=== PATIENT | female | born 1945 | race Caucasian/White ===

== ENCOUNTER → 2017-10-01 | Outpatient (CLI) | payer MEDICARE ==
[~2017-10-01] MED LIST: ALPR.25 PO; BENZ100 PO; BIOT5000 PO; CALC1TAB87 PO; CLON.5 PO; CLON1 PO; IBUP400T20 PO; KEPP1000 PO; LEXA20TA PO; OMEGCAP29 PO; OMEP20TA39 PO; TAB-TAB PO; ZETI10TA5 PO; ZOLP5TAB3 PO; [UNRECOGNIZED DRUG - CODE] PO
[2017-10-01 12:02] LABS: AUTOMATED NEUTROPHIL # 3.9 TH/MM3 (1.8-7.7); BASOPHIL % 0.6 % (0.0-2.0); EOSINOPHIL # 0.2 TH/MM3 (0-0.4); EOSINOPHIL % 2.3 % (0.0-4.0); HEMATOCRIT 42.4 % (35.0-46.0); HEMOGLOBIN 14.7 GM/DL (11.6-15.3); LYMPH % 34.9 % (9.0-44.0); LYMPHOCYTE # 2.4 TH/MM3 (1.0-4.8); MEAN CELL VOLUME 90.9 FL (80.0-100.0); MEAN CORPUSCULAR HEMOGLOBIN 31.6 PG (27.0-34.0); MEAN CORPUSCULAR HGB CONC 34.8 % (32.0-36.0); MEAN PLATELET VOLUME 8.4 FL (7.0-11.0); MONO % 5.9 % (0.0-8.0); MONOCYTE # 0.4 TH/MM3 (0-0.9); NEUT % 56.3 % (16.0-70.0); PLATELET COUNT 131 TH/MM3 (150-450); RED BLOOD COUNT 4.66 MIL/MM3 (4.00-5.30); RED CELL DISTRIBUTION WIDTH 13.1 % (11.6-17.2); WHITE BLOOD COUNT 6.9 TH/MM3 (4.0-11.0)
[2017-10-01 13:00] LABS: BILIRUBIN, URINE NEG (NEG); BLOOD, URINE NEG (NEG); GLUCOSE,URINE NEG (NEG); KETONE, URINE NEG (NEG); MUCUS URINE FEW /lpf (OCC); NITRITE,URINE NEG (NEG); PH, URINE 5.5 (5.0-8.5); URINE COLOR YELLOW (YELLW/STRAW); URINE LEUKOCYTE ESTERASE NEG (NEG)
== END ==
LOC: CLAB 11:33
PROVIDERS: ATTEND Orthopaedic Surgery Orthopaedic Surgery of the Spine
DX: M99.51 Intervertebral disc stenosis of neural canal of cervical region (principal); M50.320 Other cervical disc degeneration, mid-cervical region, unspecified level
CPT/HCPCS: 36415; 81001; 85025

== ENCOUNTER 2017-10-08 05:50 | Inpatient (IN) | payer MEDICARE ==
[~2017-10-08] VITALS: Ht 165.1 cm; Wt 65.7 kg
[~2017-10-08 05:50] MED LIST changes: -ALPR.25 PO; -BENZ100 PO; -BIOT5000 PO; -CLON1 PO; +EZET10 PO; -IBUP400T20 PO; -KEPP1000 PO; +KEPP500T5 PO; -OMEP20TA39 PO; -TAB-TAB PO; -ZETI10TA5 PO; -ZOLP5TAB3 PO; -[UNRECOGNIZED DRUG - CODE] PO
[2017-10-08] MEDS ORDERED: VANCOMYCIN 1000 MG/NS 250 ML (for <70 kg) IV SCH ×2 (06:15)
[2017-10-08] MEDS ORDERED: CHLORHEXIDINE GLUCONATE 4% SOLN 120 ML BTL TOPICAL SCH (06:15)
[2017-10-08] MEDS ORDERED: ceFAZolin 2 GM PREMIX 50 ML IV SCH (06:15)
[2017-10-08] MEDS ORDERED: BUPIVACAINE/EPINEPHRINE 0.25% 50 ML VIAL ONE (06:19)
[2017-10-08] MEDS ORDERED: ACETAMINOPHEN 1000 MG/100 ML 100 ML IV ONE (06:19)
[2017-10-08] MEDS ORDERED: GENTAMICIN SULFATE 80 MG/2 ML VIAL ONE (06:20)
[2017-10-08] MEDS ORDERED: LACTATED RINGER'S 1000 ML IV PRN (06:30)
[2017-10-08] MEDS ORDERED: METOPROLOL TARTRATE 25 MG TAB PO PRN (06:30)
[2017-10-08] MEDS ORDERED: SODIUM CHLORID 0.9% 500 ML IV PRN (06:30)
[2017-10-08] MEDS ORDERED: CHLORHEXIDINE GLUCONATE 2 % 1 PACK (2 CLOTHS) TOPICAL PRN (06:30)
[2017-10-08] MEDS ORDERED: POVIDONE IODINE 5% (ANTISEPSIS KIT) 4 APPLICATIONS EACH NARE PRN (06:30)
[2017-10-08] MEDS ORDERED: PROPOFOL 500 MG/50 ML INJ 100 ML ONE (07:58)
[2017-10-08] MEDS ORDERED: GELFOAM SIZE 100 ONE (09:11)
[2017-10-08] MEDS ORDERED: BETAMETHASONE SOD PHOS/ACETATE SUSP 30 MG/5 ML VIAL ONE (09:11)
[2017-10-08] MEDS ORDERED: CLEVIDIPINE INJ 50 ML ONE (09:57)
--- NOTE | 2017-10-08 10:42 | PD.OP ---
cc: Leighton Estevez MD; Dima Estevez MD Operative Report Date of Surgery: Oct 08, 2017 Preoperative Diagnosis: Herniated nucleus pulposus C4 5, central. Cervical spinal stenosis. Spinal cord compression. Left greater than right cervical radiculopathy. Status post anterior cervical fusion, remote, C5 6 Postoperative Diagnosis: Same Procedure: Anterocervical discectomy decompression with bilateral foraminotomy, C4-5. Left anterior iliac crest bone graft Anesthesia: Gen. Surgeon: Dima Estevez Wheel Presser(s): KATIE Fox Operation and Findings: EBL: 100 cc INDICATIONS: Patient is a 72-year-old female who had a previous cervical fusion at C5 6 many years ago. Recently she is developing mild myelopathic findings and evidence of the left greater than right cervical radiculopathy related to a central disc herniation at C4 5 with evidence of spinal cord compression. She presents for surgical treatment. NOTE: Graciela Fox PA-C was present for the entire surgical procedure as my legislative assistant. In my medical opinion her skill and care was necessary for proper management of this patient PROCEDURE: The patient was brought to the operating room and anesthetized in the supine position. This patient was positioned supine on the radiolucent table. All pressure points were protected in the anterior cervical spine and iliac crest was scrubbed with alcohol followed by Hibiclens followed by ChloraPrep. A timeout was done and antibiotics were given within 1 hour time window. Lateral radiographic images were used identifying the proper level. A right anterior incision was made in line with skin creases. The platysma was opened in line with the incision. Deep dissection continued in the interval between the carotid sheath and the esophagus. The longus-coli muscles were lifted on both sides and retractors were positioned allowing good exposure. Lateral radiographic images were used to identify the proper level. [place] style interosseous pins were placed at C4 and 5 allowing exposure to that level. The microscope was rolled into the field. A total discectomy was accomplished and posterior osteophytes were removed. The annulus was taken down. Bilateral foraminotomies were accomplished. The endplates were squared up anticipating later bone grafting. A blunt probe could be placed out each foramen without evidence of nerve root compromise. The left iliac crest was approached. A small stab incision was made allowing percutaneous access to the anterior iliac crest. Multiple cores of cancellous bone were harvested and taken to the back table to be used for later bone grafting. The wound was irrigated anesthetized and closed with 4-0 Vicryl followed by Dermabond. The case was turned over to Dr. Leighton Estevez for fusion and instrumentation per his dictation. FINDINGS: There was evidence of a large central calcified disc herniation at that level that was anterior to the posterior longitudinal ligament. Significant inflammatory changes were seen at the disc space as well as along the plane between the PLL and the dura. The decompression was felt be very satisfactory. No complication was appreciated. NOTE: This surgery was performed in 2 parts. The first part was the neurosurgical decompression performed under the variable power stereo microscope by the undersigned in addition to the bone graft. The second portion of the surgery will be performed by the orthopedic spine component by co -surgeon, Dr. Leighotn Estevez for the anterior fusion with interbody cage and anterior plate. The skill of 2 surgeons was necessary to perform distinct separate procedural services as dictated above and dictated in the following operative note by Dr. Leighton Estevez. Dima Estevez MD Oct 08, 2017 10:42
[2017-10-08] MEDS ORDERED: HYDROCODONE PO (10:43)
[2017-10-08] MEDS ORDERED: ACETAMINOPHEN PO (10:43)
[2017-10-08] MEDS ORDERED: ONDANSETRON HCL 4 MG/2 ML VIAL IV PUSH PRN (10:45)
[2017-10-08] MEDS ORDERED: Post-op Orders (for Pharmacy) MISC XX ONE (10:45)
[2017-10-08] MEDS ORDERED: SODIUM CHLORIDE 0.9% FLUSH 5 ML FLUSH IVF PRN (10:45)
[2017-10-08] MEDS ORDERED: MORPHINE SULFATE 4 MG/ML INJ IV PUSH PRN (10:45)
[2017-10-08] MEDS ORDERED: BISACODYL 10 MG SUPP RECTAL PRN (10:45)
[2017-10-08] MEDS ORDERED: ACETAMINOPHEN/HYDROcodone 325 MG/7.5 MG TAB PO PRN (10:45)
--- NOTE | 2017-10-08 10:47 | PD.ORT.PN ---
Subjective Subjective Remarks Postop day 0. History of ACDF C5 6, remote. Left greater than right arm pain prior to surgery Objective Vitals Vital Signs Date Time Temp Pulse Resp B/P (MAP) Pulse Ox O2 Delivery O2 Flow Rate FiO2 10/08/17 06:40 97.6 71 16 125/80 (95) 96 Assessment & Plan Assessment and Plan Herniated disc C4 5 central. Cervical spinal stenosis, C4 5. Spinal cord compression. Left greater than right cervical radiculopathy. ACDF C4 5, anterior plate, interbody cage, left anterior iliac crest bone graft. PLAN: Discharge to home Thursday [place] for pain, prescription is written. Brace full-time. Dry dressing daily. Can shower in 3-4 days if no drainage from the incision Dima Estevez MD Oct 08, 2017 10:47
--- NOTE | 2017-10-08 11:47 | HHI.PR ---
Immediate Post Op Note Procedure Date: Oct 08, 2017 Pre Op Diagnosis: (1) Cervical stenosis of spine Post Op Diagnosis: (1) Cervical stenosis of spine Surgeon: Leighton Clark M.D. Accounting Lecturer(s): Chante Cabrera PA-C Procedure: C4-5 ACDF Complications: none Estimated blood loss: 50 cc Anesthesia: General Drains: None Patient to: PACU Patient Condition: Good Implant/Devices: SEE IMPLANT LOG (if applicable) Date/Time of Procedure: SEE SURGICAL CARE RECORD Chante Weldon Oct 08, 2017 11:47
[2017-10-08] MEDS ORDERED: DEXAMETHASONE SOD PHOS 4 MG/ML VIAL IV ONE (12:00)
[2017-10-08] MEDS ORDERED: PHENYLEPH/NS 1000 MCG/10 ML SYR IV ONE (12:00)
[2017-10-08] MEDS ORDERED: NEOSTIGMINE 3 MG/3 ML SYR IV ONE (12:00)
[2017-10-08] MEDS ORDERED: GLYCOPYRROLATE 1 MG/5 ML SYRINGE IV PUSH ONE (12:00)
[2017-10-08] MEDS ORDERED: ePHEDrine/NS 25 MG/5 ML SYR IV ONE (12:00)
[2017-10-08] MEDS ORDERED: ROCURONIUM INJ 50 MG/5 ML SYRINGE IV PUSH ONE (12:00)
[2017-10-08] MEDS ORDERED: ESMOLOL HCL 100 MG/10 ML VIAL IV ONE (12:00)
[2017-10-08] MEDS ORDERED: PROPOFOL 200 MG/20 ML AMP IV ONE (12:00)
[2017-10-08] MEDS ORDERED: LIDOCAINE HCL 1% PF 5 ML AMPULE OTHER ONE (12:00)
[2017-10-08] MEDS ORDERED: ONDANSETRON HCL 4 MG/2 ML VIAL IV PUSH ONE (12:00)
[2017-10-08] MEDS ORDERED: *morphine SULFATE 8 MG/ML PERIprocedure ONLY ONE (12:29)
--- NOTE | 2017-10-08 12:31 | MP ---
cc: IRIS LOCKHART M.D., MARK W. M.D., PH.D DATE OF SURGERY 10/08/2017 PREOPERATIVE DIAGNOSES 1. C4-5 moderate central herniated nucleus pulposus, osteophyte disk complex; spinal cord compression, spinal stenosis. 2. Status post C5-6 anterior cervical diskectomy and fusion 1988. 3. Cervical spine degenerative disc disease, osteoarthritis. 4. Cervical radiculitis with upper extremity weakness. POSTOPERATIVE DIAGNOSES 1. C4-5 moderate central herniated nucleus pulposus, osteophyte disk complex; spinal cord compression, spinal stenosis. 2. Status post C5-6 anterior cervical diskectomy and fusion 1988. 3. Cervical spine degenerative disc disease, osteoarthritis. 4. Cervical radiculitis with upper extremity weakness. PROCEDURE C4-5 anterior interbody fusion; C4-5 [employer]ine[employer] ACC anterior cervical cage; C4-5 [employer]ine[employer] Rauscher anterior spinal instrumentation. SURGEON Ashish Lockhart MD ROLL PLUGGER MACHINE OPERATOR Chante Weldon PA-C SPECIMEN None. ESTIMATED BLOOD LOSS 50 cc for the entire case. COMPLICATIONS None. ANESTHESIA General. DRAINS None. CONDITION Stable. PLAN OF ACTIVITY As per orders. PROCEDURE My pathology assistant, Chante Weldon PA-C, was present for the entire surgical case. She was medically necessary for the entire case because of the complexity of the case and to facilitate the performance of the procedure. The ASSOCIATE ENTERTAINMENT EDITOR at the back table was not of the skill-set for this case to manipulate the instruments, e.g., the multiple different types of soft tissue retractors, trial implants and permanent implants including bone grafting. The patient was brought into the operating room. Dr. Dima Lockhart performed the right transverse anterior cervical spine exposure. The patient had previous left anterior cervical spine exposure. He performed using the operating microscope C4-5 anterior cervical discectomy, anterior decompression with foraminotomies. He also performed a left anterior iliac crest bone grafting. I was not present for this portion of the procedure. Dr. Dima Lockhart and I were co-surgeons. He performed the neural decompression portion of the procedure and I performed the orthopedic fusion and stabilization portion of the procedure. The endplates at C4-5 were prepared for fusion. The hyaline cartilage endplates were removed with angled curets and a burs. A 6, 10 x 12 ACC cage was placed in the interspace. The anterior iliac crest bone graft was placed under fluoroscopic guidance for interbody fusion. Anterior osteophytes were removed with multiple different types of rongeurs and burs. A 23-mm length Rauscher plate was used. Two tacks were used in the C4 and C5 vertebral bodies. Intraoperative fluoroscopy in the AP and lateral plane were confirmed with appropriate position of the plate. Two screws were used in the vertebral body of C4 and C5. Each screw was 14 mm in length, 4.0 mm in diameter fixed angle screws. Each screw was drilled. The screws were inserted, each screw head was appropriately locked to the plate. The tacks were removed. Intraoperative fluoroscopy in the AP and lateral plane confirmed satisfactory position of the bone graft at C4-5 and satisfactory position of the ACC cage at C4-5 and satisfactory position of anterior spinal fixation at C4-5. The wound was irrigated with copious amounts of sterile saline antibiotic solution. The wound itself was dry. The wound was closed in routine manner in multiple layers using 3-0 Vicryl suture. The skin was approximated with running subcuticular 4-0 Vicryl suture, Dermabond placed over the incision and sterile dressing applied. The patient was placed in [place] cervical orthosis. The patient tolerated the procedure well and arrived in the recovery room in stable and satisfactory condition. MD TENZIN Huang/SSB /11:47 AM /12:15 PM
[2017-10-08] MEDS: LACTATED RINGER'S 1000 ML INJ 1,000 ML IV SCH (12:35)
--- NOTE | 2017-10-08 12:44 | RADRPT ---
EXAM DATE/TIME: 10/08/2017 11:18 [facility] COMPARISON: No previous studies available for comparison. INDICATIONS : C4-C5 Anterior cervical discectomy and fusion. MEDICAL HISTORY : Seizures. Elevated liver function. SURGICAL HISTORY : Umbilical hernia repair. Lux hooverck. ENCOUNTER: Initial ACUITY: 1 day PAIN SCORE: Non-responsive. LOCATION: c-spine FINDINGS: Anterior and lateral views in the operating room show discectomy and fusion procedure with interbody and anterior instrumentation at C4/C5. Alignment is normal. No fracture seen. CONCLUSION: Fusion at C4/C5. No evidence of an acute complication. Derik Cooper MD on October 08, 2017 at 12:41 Board Certified Radiologist. This report was verified electronically.
[2017-10-08] MEDS ORDERED: DO NOT ADM ANY ANTICOAGULANT DRUGS PRN (13:30)
[2017-10-08 16:00] VITALS: BP 134/83; PULSE 101; RESP 18; TEMP 97.1; O2SAT 91
[2017-10-08] MEDS ORDERED: ALPRAZolam 0.25 MG TAB PO PRN (17:15)
[2017-10-08] MEDS: ACETAMINOPHEN/HYDROcodone 325 MG/7.5 MG TAB PO PRN ×2 (17:31→21:49)
[2017-10-08 17:34] VITALS: O2SAT 95
[2017-10-08 20:00] VITALS: BP 128/75; PULSE 87; RESP 20; TEMP 97.6; O2SAT 96
[2017-10-08] MEDS: SODIUM CHLORIDE 0.9% FLUSH 5 ML FLUSH IVF SCH (20:53)
[2017-10-08] MEDS ORDERED: clonazePAM 0.5 MG TAB PO SCH (21:00)
[2017-10-08] MEDS ORDERED: EZETIMIBE 10 MG TAB PO SCH (21:00)
[2017-10-09] VITALS: BP 116/79; PULSE 78; RESP 18; TEMP 98.2; O2SAT 97
[2017-10-09] MEDS: LACTATED RINGER'S 1000 ML INJ 1,000 ML IV SCH (01:00)
[2017-10-09] MEDS: ACETAMINOPHEN/HYDROcodone 325 MG/7.5 MG TAB PO PRN ×2 (03:08→08:41)
[2017-10-09 04:00] VITALS: BP 112/66; PULSE 71; RESP 18; TEMP 97.5; O2SAT 95
[2017-10-09 08:00] VITALS: BP 120/71; PULSE 69; RESP 18; TEMP 96.9; O2SAT 97
[2017-10-09] MEDS: SODIUM CHLORIDE 0.9% FLUSH 5 ML FLUSH IVF SCH (08:48)
[2017-10-09] MEDS ORDERED: LEVETIRACETAM 1000 MG PO SCH (09:00)
[2017-10-09] MEDS ORDERED: DOCUSATE SODIUM 100 MG CAP PO SCH (09:00)
[2017-10-09] MEDS ORDERED: MULTIVITAMINS/MINERALS THERAPEUTIC TAB PO SCH (09:00)
[2017-10-09] MEDS ORDERED: ESCITALOPRAM OXALATE 20 MG TAB PO SCH (09:00)
== END 2017-10-09 10:50 | disposition home or self-care (01) | DRG 472 ==
LOC: HSDC 05:50 → HSDI 10:39 → N06B 14:27
PROVIDERS: ADMIT Orthopaedic Surgery Orthopaedic Surgery of the Spine; ATTEND Orthopaedic Surgery Orthopaedic Surgery of the Spine
PROC: 0RT30ZZ Resection of Cervical Vertebral Disc, Open Approach (ICD-10-PCS; 2017-10-08)
PROC: 0QB30ZZ Excision of Left Pelvic Bone, Open Approach (ICD-10-PCS; 2017-10-08)
PROC: 0RG10A0 Fusion of Cervical Vertebral Joint with Interbody Fusion Device, Anterior Approach, Anterior Column, Open Approach (ICD-10-PCS; principal; 2017-10-08 08:33)
DX: M48.02 Spinal stenosis, cervical region (principal); M50.021 Cervical disc disorder at C4-C5 level with myelopathy; K76.0 Fatty (change of) liver, not elsewhere classified; G40.909 Epilepsy, unspecified, not intractable, without status epilepticus; M50.121 Cervical disc disorder at C4-C5 level with radiculopathy; E78.5 Hyperlipidemia, unspecified; F32.9 Major depressive disorder, single episode, unspecified; Z85.820 Personal history of malignant melanoma of skin; Z88.0 Allergy status to penicillin; Z98.1 Arthrodesis status
CPT/HCPCS: 72040; 76000; 94150; C1713; C9248; J0131; J0690; J0702; J1100; J1580; J2270; J2370; J2405; J2710; J3010; J3370; J7050; J7120

== ENCOUNTER 2017-10-11 11:18 | Emergency (ER) | payer MEDICARE ==
[~2017-10-11] VITALS: Ht 165.1 cm; Wt 55.0 kg
[~2017-10-11 11:18] MED LIST changes: +ACETAMINOPHEN PO; +HYDROCODONE PO
[2017-10-11 11:36] VITALS: BP 164/86; PULSE 77; RESP 14; TEMP 99.1; O2SAT 97
[2017-10-11] MEDS ORDERED: SODIUM CHLORIDE 0.9% FLUSH 5 ML FLUSH IV FLUSH PRN (12:15)
[2017-10-11 12:21] VITALS: O2SAT 98
[2017-10-11 12:40] LABS: AUTOMATED NEUTROPHIL # 3.6 TH/MM3 (1.8-7.7); BASOPHIL % 0.4 % (0.0-2.0); EOSINOPHIL # 0.1 TH/MM3 (0-0.4); EOSINOPHIL % 2.2 % (0.0-4.0); HEMATOCRIT 37.5 % (35.0-46.0); HEMO FLAGS DIFF FINAL; LYMPH % 31.3 % (9.0-44.0); LYMPHOCYTE # 1.9 TH/MM3 (1.0-4.8); MEAN CELL VOLUME 90.7 FL (80.0-100.0); MEAN CORPUSCULAR HEMOGLOBIN 31.8 PG (27.0-34.0); MONO % 7.5 % (0.0-8.0); NEUT % 58.6 % (16.0-70.0); PLATELET COUNT 128 TH/MM3 (150-450); RED BLOOD COUNT 4.13 MIL/MM3 (4.00-5.30); WHITE BLOOD COUNT 6.2 TH/MM3 (4.0-11.0)
[2017-10-11 12:48] LABS: BICARBONATE 31.5 MEQ/L (21.0-32.0); POTASSIUM 3.5 MEQ/L (3.5-5.1)
--- NOTE | 2017-10-11 13:02 | PD ---
HPI Chief Complaint: Altered Mental Status Time Seen by Provider: 11:58 Travel History International Travel<30 days: No Contact w/Intl Traveler<30days: No Traveled to known affect area: No History of Present Illness HPI The patient was seen and examined in the presence of the nurse. This patient is brought in by her complaining of altered mental status and lethargy. For the last 24 hours she's been drowsy and sleeping a lot. She had cervical fusion surgery 5 days ago. She's been on narcotic pain medicine since then. She also chronically takes benzodiazepines. She has history of seizure disorder but has not had a seizure for the last 6 months. No fever or recent head injury. Symptoms severity is moderate. No alleviating factors. Symptoms may be exacerbated by sedating medication PFSH Past Medical History Hx Anticoagulant Therapy: Yes (ASA) Blood Disorders: No Anxiety: Yes Depression: Yes Cancer: No Cardiovascular Problems: No Diabetes: No Diminished Hearing: Yes Endocrine: No Genitourinary: No Hepatitis: No Hiatal Hernia: No Immune Disorder: No Musculoskeletal: No Neurologic: Yes (VERTIGO, SEIZURES, CERVICAL SPINE COMPRESSION) Psychiatric: Yes (ANXIETY AND DEPRESSION) Reproductive: No Respiratory: No Immunizations Current: Yes Seizures: Yes Sleep Apnea: Yes Thyroid Disease: No Influenza Vaccination: Yes : 5 Para: 5 Past Surgical History Abdominal Surgery: Yes (UMBILCAL HERNIA, TUMMY TUCK) AICD: No Cardiac Surgery: No Ear Surgery: No Endocrine Surgery: No Eye Surgery: No Genitourinary Surgery: No Gynecologic Surgery: Yes (TOTAL ABDOMINAL HYSTERECTOMY) Hysterectomy: Yes Joint Replacement: No Oral Surgery: No Pacemaker: No Thoracic Surgery: No Other Surgery: Yes (ELROY ,DISC C4-5,UMBILICAL HERNIA,TUMMY TUCK) Social History Alcohol Use: Yes (SOCIAL) Tobacco Use: No Substance Use: No Allergies-Medications (Allergen,Severity, Reaction): Coded Allergies: penicillin G (Unverified Allergy, Severe, Rash, 10/11/17) lorazepam (Unverified Allergy, Intermediate, Tachycardia, 10/11/17) carbamazepine (Unverified Adverse Reaction, Severe, Itching, 10/11/17) phenytoin (Unverified Adverse Reaction, Severe, Itching, 10/11/17) Reported Meds & Prescriptions Reported Meds & Active Scripts Active [ACETAMIN-HYDROcod 325-7.5 MG] 1 TAB Tab 1 Tab PO Q4H PRN Reported Zetia (Ezetimibe) 10 Mg Tab 10 Mg PO HS Calcium 600 with Vitamin D (Calcium Carbonate-Cholecalciferol) 600-400 mg-Unit Tab 1 Tab PO DAILY [facility] ([place] [address]) 250-2.5-0.5 Mg Cap 1 Cap PO DAILY Lexapro (Escitalopram Oxalate) 20 Mg Tab 20 Mg PO DAILY Klonopin (Clonazepam) 0.5 Mg Tab 0.5 Mg PO HS Keppra XR 24 HR (Levetiracetam) 500 Mg Ferny 1,000 Mg PO DAILY Review of Systems General / Constitutional: No: Fever Eyes: No: Visual changes HENT: No: Headaches Cardiovascular: No: Chest Pain or Discomfort Respiratory: No: Shortness of Breath Gastrointestinal: No: Abdominal Pain Genitourinary: No: Dysuria Musculoskeletal: Positive: Pain Skin: No Rash Neurologic: Positive: Change in Mentation, No: Weakness Psychiatric: No: Depression Endocrine: No: Polydipsia Hematologic/Lymphatic: No: Easy Bruising Physical Exam Narrative GENERAL: Well-nourished, well-developed patient in no apparent distress. SKIN: Focused skin assessment reveals no rash and nodules. Skin is Warm and dry. HEAD: Atraumatic. Normocephalic. EYES: Pupils equal and round. No scleral icterus. No injection or drainage. ENT: No nasal bleeding or discharge. Mucous membranes pink and moist. NECK: Trachea midline. No JVD. Cervical collar in place CARDIOVASCULAR: Regular rate and rhythm. No murmur appreciated. RESPIRATORY: No accessory muscle use. Clear to auscultation. Breath sounds equal bilaterally. GASTROINTESTINAL: Abdomen soft, non-tender, nondistended. Hepatic and splenic margins not palpable. MUSCULOSKELETAL: No obvious deformities. No clubbing. No cyanosis. No edema. NEUROLOGICAL: Awake and alert. No obvious cranial nerve deficits. Motor grossly within normal limits. Very soft spoken, barely understandable speech. PSYCHIATRIC: Appropriate mood and affect; insight and judgment reduced . Data Data Last Documented VS Vital Signs Date Time Temp Pulse Resp B/P (MAP) Pulse Ox O2 Delivery O2 Flow Rate FiO2 10/11/17 12:21 98 Nasal Cannula 2.00 10/11/17 11:36 99.1 77 14 Orders Orders Basic Metabolic Panel (Bmp) (10/11/17 12:12) Complete Blood Count With Diff (10/11/17 12:12) Urinalysis - C+S If Indicated (10/11/17 12:12) Ct Brain W/O Iv Contrast(Rout) (10/11/17 12:12) Blood Glucose (10/11/17 12:12) Ecg Monitoring (10/11/17 12:12) Iv Access Insert/Monitor (10/11/17 12:12) Oximetry (10/11/17 12:12) Sodium Chloride 0.9% Flush (Ns Flush) (10/11/17 12:15) Labs Laboratory Tests Test 10/11/17 12:10 10/11/17 13:20 White Blood Count 6.2 TH/MM3 Red Blood Count 4.13 MIL/MM3 Hemoglobin 13.1 GM/DL Hematocrit 37.5 % Mean Corpuscular Volume 90.7 FL Mean Corpuscular Hemoglobin 31.8 PG Mean Corpuscular Hemoglobin Concent 35.0 % Red Cell Distribution Width 13.0 % Platelet Count 128 TH/MM3 Mean Platelet Volume 8.0 FL Neutrophils (%) (Auto) 58.6 % Lymphocytes (%) (Auto) 31.3 % Monocytes (%) (Auto) 7.5 % Eosinophils (%) (Auto) 2.2 % Basophils (%) (Auto) 0.4 % Neutrophils # (Auto) 3.6 TH/MM3 Lymphocytes # (Auto) 1.9 TH/MM3 Monocytes # (Auto) 0.5 TH/MM3 Eosinophils # (Auto) 0.1 TH/MM3 Basophils # (Auto) 0.0 TH/MM3 CBC Comment DIFF FINAL Differential Comment Blood Urea Nitrogen 8 MG/DL Creatinine 0.62 MG/DL Random Glucose 101 MG/DL Calcium Level 8.7 MG/DL Sodium Level 139 MEQ/L Potassium Level 3.5 MEQ/L Chloride Level 102 MEQ/L Carbon Dioxide Level 31.5 MEQ/L Anion Gap 6 MEQ/L Estimat Glomerular Filtration Rate 95 ML/MIN Urine Color YELLOW Urine Turbidity CLEAR Urine pH 8.0 Urine Specific [place] 1.011 Urine Protein NEG mg/dL Urine Glucose (UA) NEG mg/dL Urine Ketones TRACE mg/dL Urine Occult Blood NEG Urine Nitrite NEG Urine Bilirubin NEG Urine Urobilinogen LESS THAN 2.0 MG/DL Urine Leukocyte Esterase NEG Urine RBC 2 /hpf Urine WBC LESS THAN 1 /hpf Microscopic Urinalysis Comment CATH-CULT NOT IND MDM Medical Decision Making Medical Screen Exam Complete: Yes Emergency Medical Condition: Yes Medical Record Reviewed: Yes Differential Diagnosis Overmedication, medication side effect, UTI, cerebral edema Narrative Course I have reviewed the patient's electronic medical record. Reviewed her operative note from a few days ago IV placed CBC is normal Metabolic profile is normal Urinalysis is normal Brain CT shows a minor little old lacunar infarct Patient seems more alert than when I first saw her. I think she is overmedicated. He will hold Klonopin and narcotic pain pills and I but tomorrow she is improved. She does not look septic or toxic. Diagnosis Primary Impression: Altered mental status, unspecified Qualified Codes: R40.0 - Somnolence Additional Impression: Medication side effect Qualified Codes: T88.7XXA - Unspecified adverse effect of drug or medicament, initial encounter Additional Instructions: The patient was advised to follow up with their physician and return if they worsen. Stop Klonopin and narcotic pain pills Med/Other Pt SpecificInfo: Other Disposition: 01 DISCHARGE HOME Condition: Stable Shahzad Aviles MD Oct 11, 2017 13:02
--- NOTE | 2017-10-11 13:08 | RADRPT ---
EXAM DATE/TIME: 10/11/2017 12:36 [facility] COMPARISON: CT BRAIN W/O CONTRAST, July 07, 2014, 1:20. INDICATIONS : Altered mental status post operative neck surgery three days ago; non verbal for two days. RADIATION DOSE: 56.35 CTDIvol (mGy) MEDICAL HISTORY : Seizures. SURGICAL HISTORY : Hysterectomy. Neck ENCOUNTER: Initial ACUITY: 1 day PAIN SCALE: Non-responsive LOCATION: cranial TECHNIQUE: Multiple contiguous axial images were obtained of the head. Using automated exposure control and adj ustment of the mA and/or kV according to patient size, radiation dose was kept as low as reasonably a chievable to obtain optimal diagnostic quality images. DICOM format image data is available electro nically for review and comparison. FINDINGS: CEREBRUM: The ventricles are normal for age. Since the prior exam, there appears to be a lacunar type infarct in the right basal ganglia which has the radiographic characteristics of a chronic injury. This appea rs isolated No evidence of midline shift, mass lesion, hemorrhage or acute infarction. No extra-axia l fluid collections are seen. POSTERIOR FOSSA: Marked cerebellar atrophy, unchanged from prior. The 4th ventricle is midline. The cerebellopontine angle is unremarkable. EXTRACRANIAL: The visualized portion of the orbits is intact. SKULL: The calvaria is intact. No evidence of skull fracture. CONCLUSION: 1. Interval development of a lacunar type infarct in the right basal ganglia. Although this is new fr om the 2013 exam, imaging characteristics suggest some degree of chronicity. 2. Stable diffuse cerebellar atrophy. 3. Nothing acute to explain current clinical symptoms. Georgi Patterson MD on October 11, 2017 at 13:04 Board Certified Radiologist. This report was verified electronically.
[2017-10-11 13:45] LABS: BLOOD, URINE NEG (NEG); GLUCOSE,URINE NEG (NEG); KETONE, URINE TRACE mg/dL (NEG); NITRITE,URINE NEG (NEG); URINE COLOR YELLOW (YELLW/STRAW)
[2017-10-11 13:51] LABS: COMMENT (UR) CATH-CULT NOT IND; CULTURE IF INDICATED CATH CULTURE NOT IND
== END 2017-10-11 14:51 | disposition home or self-care (01) ==
LOC: NEPE 11:18
DX: R40.0 Somnolence (principal); T50.905A Adverse effect of unspecified drugs, medicaments and biological substances, initial encounter
CPT/HCPCS: 70450; 80048; 81001; 85025; 99284

== ENCOUNTER → 2017-11-10 | Outpatient (CLI) | payer MEDICARE ==
[2017-11-10 09:51] LABS: BASOPHIL % 0.6 % (0.0-2.0); EOSINOPHIL # 0.1 TH/MM3 (0-0.4); EOSINOPHIL % 2.5 % (0.0-4.0); HEMATOCRIT 38.8 % (35.0-46.0); HEMO FLAGS DIFF FINAL; LYMPH % 36.3 % (9.0-44.0); MEAN CELL VOLUME 89.4 FL (80.0-100.0); MEAN CORPUSCULAR HEMOGLOBIN 31.3 PG (27.0-34.0); MONO % 6.1 % (0.0-8.0); NEUT % 54.5 % (16.0-70.0); PLATELET COUNT 126 TH/MM3 (150-450); RED BLOOD COUNT 4.34 MIL/MM3 (4.00-5.30); RED CELL DISTRIBUTION WIDTH 13.4 % (11.6-17.2); WHITE BLOOD COUNT 5.4 TH/MM3 (4.0-11.0)
[2017-11-10 09:52] LABS: BACTERIA, URINE RARE /hpf; BLOOD, URINE NEG (NEG); GLUCOSE,URINE NEG (NEG); KETONE, URINE NEG (NEG); NITRITE,URINE NEG (NEG); PH, URINE 6.5 (5.0-8.5); SQUAMOUS EPITHELIAL CELL URINE 1 /hpf (0-5); URINE COLOR LIGHT-YELLOW (YELLW/STRAW)
[2017-11-10 09:57] LABS: COMMENT (UR) CULT NOT INDICATED; CULTURE IF INDICATED CULT NOT INDICATED
[2017-11-10 10:10] LABS: ANION GAP 8 MEQ/L (5-15); AST (GOT) 37 U/L (15-37); BICARBONATE 27.9 MEQ/L (21.0-32.0); BLOOD UREA NITROGEN 6 MG/DL (7-18); CHLORIDE 102 MEQ/L (98-107); GLOMERULAR FILTRATION RATE 90 ML/MIN (>89); GLUCOSE,FASTING 107 MG/DL (74-99); POTASSIUM 3.6 MEQ/L (3.5-5.1); SODIUM (NA) 138 MEQ/L (136-145)
[2017-11-10 10:23] LABS: ALKALINE PHOSPHATASE 83 U/L (45-117); ALT (GPT) 44 U/L (10-53); HDL CHOLESTEROL 33.6 MG/DL (40.0-60.0); LDL CHOLESTEROL 123 MG/DL (0-99); TOTAL BILIRUBIN ADULT 0.5 MG/DL (0.2-1.0)
[2017-11-10 12:31] LABS: HEMOGLOBIN A1a 0.6 %; HEMOGLOBIN A1b 0.9 %; HEMOGLOBIN Ao 88.1 %; HEMOGLOBIN F 0.7 %; HEMOGLOBIN LA1C 1.8 %
== END ==
LOC: CLAB 08:57
DX: E78.5 Hyperlipidemia, unspecified (principal); I10 Essential (primary) hypertension; R73.01 Impaired fasting glucose
CPT/HCPCS: 36415; 80053; 80061; 81001; 83036; 84443; 85025